=== PATIENT | female | born 1970 | race Caucasian/White ===

== ENCOUNTER 2019-05-12 13:20 | Emergency (ER) | payer OTHER ==
[~2019-05-12] VITALS: Ht 157.5 cm; Wt 56.7 kg
[~2019-05-12 13:20] MED LIST: ALEVE220 MG PO; D-20001 TAB PO; ENBREL25 MG SC; MOTRIN800 MG PO; PRE10 PO; PREDNISONE2.5 MG PO
[2019-05-12 13:48] VITALS: Ht 157.5 cm; Wt 56.7 kg
[2019-05-12 17:15] LABS: BASOPHIL % 0.3 % (0-2); PLATELET COUNT 369 x10^3mcL (130-400)
[2019-05-12 17:17] LABS: RED CELL DISTRIBUTION WIDTH 15.9 % (11.5-14.5)
[2019-05-12 17:31] LABS: CALCIUM 8.3 mg/dL (8.5-10.1); CARBON DIOXIDE 29.8 mmol/L (21-32); CHLORIDE SERUM 107 mmol/L (98-107); CREATININE SERUM 0.4 mg/dL (0.6-1.0); GFR1 > 60 mL/min; GLUCOSE SERUM 84 mg/dL (74-106); POTASSIUM SERUM 3.5 mmol/L (3.5-5.1); SODIUM SERUM 145 mmol/L (136-145)
[2019-05-12 17:46] LABS: ALBUMIN 3.5 g/dL (3.4-5.0); ALKALINE PHOSPHATASE 158 U/L (46-116); ALT/SGPT 34 U/L (14-59); AST/SGOT 12 U/L (15-37); BILIRUBIN TOTAL 0.33 mg/dL (0.20-1.00); TOTAL PROTEIN, SERUM 7.2 g/dL (6.4-8.2)
[2019-05-12 17:48] LABS: T3 TOTAL 0.94 ng/mL
[2019-05-12 18:00] VITALS: BP 131/80
[2019-05-12 18:01] LABS: FREE T4 0.89 ng/dL (0.76-1.46); FREE THYROXINE INDEX 2.3 ug/dL (1.4-4.5)
== END 2019-05-12 19:08 | disposition home or self-care (01) ==
LOC: ED 13:20
PROVIDERS: Emergency Medicine
DX: R60.0 Localized edema (principal); M06.9 Rheumatoid arthritis, unspecified; Z88.8 Allergy status to other drugs, medicaments and biological substances
CPT/HCPCS: 83880; 84439; J2270; J2405; Q0092

== ENCOUNTER 2019-07-20 16:41 | Inpatient (IN) | payer OTHER ==
[~2019-07-20] VITALS: Ht 157.5 cm; Wt 59.0 kg
--- NOTE | 2019-07-20 18:40 | NUR ---
PT TO ED FOR EVAL OF NON-HEALING WOUND TO R LOWER LEG X 3 WEEKS. PT HAS BEEN ON CLINDAMYCIN THERAPY BUT WOUND HAS NOT HEALED. 2CM X 1 CM WOUND TO R LATERAL LOWER LEG X 3 WEEKS. EDEMA TO R LEG X 3 MONTHS. PT AWAKE AND ALERT. BREATHING EVEN UNLABORED. PT HAS DEFORMED HANDS DUE TO RA.
--- NOTE | 2019-07-20 19:27 | NUR ---
PT PROVIDED URINE SAMPLE AT BEDSIDE.
[2019-07-20 19:51] LABS: BASOPHIL % 0.2 % (0-2); PLATELET COUNT 356 x10^3mcL (130-400); RED CELL DISTRIBUTION WIDTH 13.8 % (11.5-14.5)
[2019-07-20 20:01] LABS: CALCIUM 9.1 mg/dL (8.5-10.1); CARBON DIOXIDE 24.4 mmol/L (21-32); CHLORIDE SERUM 101 mmol/L (98-107); CREATININE SERUM 0.3 mg/dL (0.6-1.0); GFR1 > 60 mL/min; GLUCOSE SERUM 113 mg/dL (74-106); POTASSIUM SERUM 3.4 mmol/L (3.5-5.1); SODIUM SERUM 138 mmol/L (136-145)
[2019-07-20 20:06] LABS: ALKALINE PHOSPHATASE 185 U/L (46-116); AST/SGOT 30 U/L (15-37); BILIRUBIN TOTAL 0.43 mg/dL (0.20-1.00); TOTAL PROTEIN, SERUM 7.5 g/dL (6.4-8.2)
[2019-07-20 20:10] LABS: UA SPECIFIC GRAVITY >=1.030 (1.005-1.035); microscopic required? YES; urine erythrocyte 3+ (NEGATIVE)
[2019-07-20 20:31] LABS: ALT/SGPT 56 U/L (14-59)
--- NOTE | 2019-07-20 20:57 | NUR ---
PT REPORT CALLED TO JAZMYNE GOMES TO ASSUME PT CARE.
--- NOTE | 2019-07-20 21:05 | NUR ---
PT TRANSFERRED TO [facility] BY [facility] BY JACKI BARNARD AND KULWANT RN. PT ON FULL CM FOR TRANSPORT. PT AOX4, RESP EVEN AND UNLABORED, NO ACUTE DISTRESS NOTED. PT ACCEPTED BY JAZMYNE GOMES TO ASSUME PT CARE, PT AMBULATED FROM [facility] TO BED WITHOUT INCIDENT WITH WALKER FOR ASSISTANCE.
--- NOTE | 2019-07-20 21:10 | NUR ---
RECEIVED PT FROM ED VIA EMERSON, CAME IN DUE TO RLE WOUND X3 WEEKS, HAD ANTBITIOCS TREATMENT. PT IS AAOX4. DENIES HEADACHE/DIZZINESS. ABLE TO FOLLOW COMMANDS. NO SOB NOTED. DENIES CHEST PAIN/PRESSURE, HR AT 130, SINUS TACHYCARDIA. DENIES ABDOMINAL PAIN/NAUSEA/VOMITING. HAD SOFT BM TODAY. VOIDS. W/ DEFORMITIES ON THE HANDS, HISTORY OF RHEUMATOID ARTHRITIS. USES WALKER ON AMBULATION. STATED THAT SHE HAS 2/10 RLE PAIN. W/ OPEN WOUND AND ERYTHEMA ON RLE AND MILD ERYTHEMA ON LLE. W/ +2 EDEMA ON RLE. IV SITE PATENT AND INTACT, RECEIVED PT FROM ED W/ ROCEPHIN ONGOING. SIDE RAILS UPX2. CALL LIGHT ON REACH. PRIMARY NURSE JAZMYNE AT BEDSIDE FOR CONTINUITY OF CARE
--- NOTE | 2019-07-20 21:15 | NUR ---
PT RECEIVED A/O X4, ABLE TO MAKE NEEDS KNOWN. SPOUSE AT BEDSIDE. TELE #31, SINUS TACH, PT DENIES HAVING ANY CP/PRESSURE. WEAK RIGHT PEDAL PULSE, EDEMA NOTED TO RLE. BREATHING IS EVEN AND UNLABORED ON RA, NO RESP DISTRESS NOTED. ABD SOFT AND NONDISTENDED, DENIES N/V. VOIDS FREELY, BSC. GENREALIZED WEAKNESS, PT AMBULATORY WITH FWW AT BEDSIDE. DEFORMITIES NOTED TO CHRISTOPHER HANDS; PT HAS HX OF RHEUMATOID ARTHRITIS. OPEN WOUNDS NOTED TO RLE, MICHELLE; CLOSED WOUND TO LLE, MICHELLE. PT REPORTS 2/10 MILD PAIN TO RIGHT FOOT, OFFERED PT PAIN MEDS, PT STATES PAIN IS TOLERABLE AT THIS TIME. NO ACUTE DISTRESS NOTED. SL TO RAC, PATENT AND INTACT. ORIENTED PT TO ROOM AND CALL LIGHT. BED IN LOWEST SETTING, SIDE RAILS UP X2, CALL LIGHT WITHIN REACH. WILL CONT TO MONITOR.
[2019-07-20 21:39] VITALS: BP 147/81
[2019-07-20 21:42] VITALS: Ht 157.5 cm; Wt 59.0 kg
[2019-07-20 21:45] LABS: AMPHETAMINE QUAL UR NONE DETECTED (See below)
--- NOTE | 2019-07-20 23:20 | NUR ---
PT C/O /10 RIGHT FOOT PAIN, PRN NORCO GIVEN ORDERED. NO ACUTE DISTRESS NOTED. WILL CONT TO MONITOR.
[2019-07-21 05:24] VITALS: BP 106/71
--- NOTE | 2019-07-21 06:20 | NUR ---
PT SLEPT WELL THROUHGOUT THE EVENING. BREATHING IS EVEN AND UNLABORED, NO RESP DISTRESS NOTED. PT C/O 03/08 RLE PAIN, PRN NORCO GIVEN ORDERED. NO ACUTE CHANGES ENCOUNTERED DURING SHIFT. ALL NEEDS MET AND ANTICIPATED. PT COMPLIANT WITH NURSING CARE. IVF INFUSING WELL, SITE WNL. CALL LIGHT WITHIN REACH. WILL ENDORSE CARE TO AM NURSE.
[2019-07-21 06:29] LABS: BASOPHIL % 0.3 % (0-2); PLATELET COUNT 306 x10^3mcL (130-400); RED CELL DISTRIBUTION WIDTH 14.4 % (11.5-14.5)
--- NOTE | 2019-07-21 06:30 | NUR ---
PODIATRY TEAM AT BEDSIDE PERFORMING WOUND CARE KEN.
[2019-07-21 06:47] LABS: CALCIUM 8.5 mg/dL (8.5-10.1); CARBON DIOXIDE 25.1 mmol/L (21-32); CHLORIDE SERUM 102 mmol/L (98-107); CREATININE SERUM 0.3 mg/dL (0.6-1.0); GFR1 > 60 mL/min; GLUCOSE SERUM 93 mg/dL (74-106); MAGNESIUM 1.5 mg/dL (1.8-2.4); PHOSPHOROUS 4.4 mg/dL (2.5-4.9); POTASSIUM SERUM 3.5 mmol/L (3.5-5.1); SODIUM SERUM 136 mmol/L (136-145)
--- NOTE | 2019-07-21 07:20 | NUR ---
RECEIVED PT FROM INTERNET MEDIA PLANNER. PT AWAKE, ALERT. A/OX4. PT ON ROOM AIR WITH NO RESP DISTRESS NOTED. IV ACCESS RAC, CDI INFUSING NS AT 70ML/HR. PT ON TELE 31, DENIES CHEST PAIN. PT NOTED TO HAVE WOUND TO RLE WITH BANDAGE CDI. SWELLING AND EDEMA NOTED TO RLS. PERIPHERAL PULSES BUE PALPABLE, ACTIVE BS NOTED. PT USES BSC WITH NO ISSUES NOTED. PT NOTED TO HAVE DEFORMITIES TO BILATERAL HANDS. PT REPORTS PAIN IS TOLERABLE AT THIS TIME. WILL MONITOR. SAFETY MEASURES IN PLACE, BED LOW AND LOCKED. CALL LIGHT WITHIN REACH.
--- NOTE | 2019-07-21 07:33 | NUR ---
PT IN NO ACUTE DISTRESS. CONTINUITY OF CARE ENDORSED TO BRITTANY GOMES. ALL QUESTIONS AND CONCERNS ADDRESSED.
[2019-07-21 10:32] VITALS: BP 108/60
--- NOTE | 2019-07-21 10:37 | NUR ---
PT COMPLAINING OF PAIN TO RIGHT LOWER EXTREMITY 03/08. ASKING FOR PAIN MEDICINE. NORCO ADMINISTERED ORDERED PRN. WILL MONITOR.
--- NOTE | 2019-07-21 11:30 | NUR ---
PT REPORTS PAIN IS 2/10 AT THIS TIME. MED EFFECTIVE.
--- NOTE | 2019-07-21 12:48 | NUR ---
PT IV LEAKING TO RAC. NEW IV PLACED, 22G TO RFA. PT TOLERATED WELL. OLD IV REMOVED WITH CATHETER INTACT. SAFETY MAINTAINED.
--- NOTE | 2019-07-21 12:58 | NUR ---
PT MAG NOTED TO BE 1.5. NEW ORDER FOR MAG OXIDE. MED ADMINISTERED ORDERED (SEE EMAR). PT TOLERATED WELL.
[2019-07-21 13:15] VITALS: BP 112/57
--- NOTE | 2019-07-21 15:58 | NUR ---
PT COMPLAINING OF PAIN TO RIGHT FOOT 02/06, ASKING FOR PAIN MED. NORCO ADMINISTERED ORDERED PRN. WILL MONITOR. CONSENT FOR EXCISIONAL DEBRIDEMENT OBTAINED AT THIS TIME.
[2019-07-21 16:59] VITALS: BP 127/72
--- NOTE | 2019-07-21 18:37 | NUR ---
PT REFUSES DILAUDID AND LIDOCAINE AT THIS TIME. PT STATES SHE DOES NOT NEED IT FOR THE PROCEDURE. PT TOLERATED PROCEDURE WELL. ALL NEEDS TENDED TO THROUGHOUT SHIFT. WILL CONTINUE TO MONITOR AND ENDORSE CARE TO OPERATIONS RESEARCH ANALYST.
[2019-07-21 20:38] VITALS: BP 136/95
--- NOTE | 2019-07-21 20:52 | NUR ---
Awake and verbally responsive. No respiratory distress noted on room air. Denies n/v. Medicated as ordered for c/o right leg wound pain. [place] 1 tab given. RLE wound with dressing intact. Erythema and edema noted. Supported with pillow. Will cont.to monitor. Call light within reach.
--- NOTE | 2019-07-22 03:54 | NUR ---
Afebrile. No significant changein condition noted. Pain managed with norco. Denies n/v. Right leg wound with dressing intact. Cont.on IV vancomycin, zosyn. In no apparent distress.
[2019-07-22 05:26] VITALS: BP 119/59
[2019-07-22 06:46] LABS: CALCIUM 8.6 mg/dL (8.5-10.1); CARBON DIOXIDE 27.2 mmol/L (21-32); CHLORIDE SERUM 101 mmol/L (98-107); CREATININE SERUM 0.8 mg/dL (0.6-1.0); GFR1 > 60 mL/min; GLUCOSE SERUM 98 mg/dL (74-106); MAGNESIUM 1.8 mg/dL (1.8-2.4); PHOSPHOROUS 4.2 mg/dL (2.5-4.9); POTASSIUM SERUM 3.4 mmol/L (3.5-5.1); SODIUM SERUM 136 mmol/L (136-145)
[2019-07-22 06:52] LABS: BASOPHIL % 0.2 % (0-2); PLATELET COUNT 274 x10^3mcL (130-400); RED CELL DISTRIBUTION WIDTH 14.1 % (11.5-14.5)
--- NOTE | 2019-07-22 07:35 | NUR ---
RECEIVED PATIENT. ALERT AND ORIENTED X4. NO ACUTE RESPIRATORY DISTRESS NOTED. NO CHEST PAIN OR PRESSURE. NO C/O PAIN AT THIS TIME. NS RUNNING AT 70 ML/HR, IV PATENT AND INTACT, NO INFILTRATION NOTED. HANDS ARE CONTRACTED DUE TO HX OF RHEUMATOID ARTHRITIS, PATIENT EDUCATED TO CALL FOR HELP IF NEEDED. BSC IN PLACE. RLE EDEMA NOTED WITH REDNESS AND WARM TO TOUCH. PATIENT ADMITTED FOR RIGHT LEG CELLULITIS. PATIENT WILL BE GETTING ABX ORDERED. SAFETY PRECAUTIONS IN PLACE. CALL LIGHT WITHIN REACH. WILL CONTINUE TO MONITOR.
--- NOTE | 2019-07-22 07:58 | NUR ---
PATIENT COMPLAINED OF NAUSEA. ZOFRAN 4MG IVP GIVEN BEFORE BREAKFAST. PATIENT TOLERATED WELL, WILL CONTINUE TO MONITOR.
--- NOTE | 2019-07-22 08:44 | NUR ---
PATIENT COMPLAINING OF PAIN TO RIGHT LOWER FOOT. MORPHINE 2MG IVP GIVEN. PATIENT TOLERATED WELL. WILL CONTINUE TO MONITOR.
--- NOTE | 2019-07-22 09:40 | NUR ---
PATIENT IS STABLE, NO ACUTE RESPIRATORY DISTRESS NOTED. PATIENT REMAINS SLIGHTLY TACHYCARDIC. PATIENT STATED PAIN WENT DOWN TO 2 OUT OF 10 AFTER PAIN MEDICATION. PATIENT TAUGHT OF SIDE EFFECTS OF MORPHINE. PATIENT VERBALIZED UNDERSTANDING. IV INTACT AND PATENT, NO INFILTRATION NOTED. SAFETY PRECAUTIONS IN PLACE. WILL CONTINUE TO MONITOR.
[2019-07-22 09:43] VITALS: BP 126/59
--- NOTE | 2019-07-22 12:00 | NUR ---
SPOKE TO PHARMACIST REGARDING VANCO TROUGH RESULT 32.7. PER PHARMACIST, HOLD ADMINISTRATION OF VANCOMYCIN AT 1300 UNTIL REPEAT LAB RESULTS HAVE ARRIVED. WILL WAIT FOR PHARMACIST CALL AND RECOMMENDATION ABOUT ADMINISTRATION OF MEDICATION. WILL CONTINUE TO MONITOR PATIENT.
--- NOTE | 2019-07-22 12:35 | NUR ---
PATIENT IN BED, EATING LUNCH. PATIENT IS STABLE, NO ACUTE RESPIRATORY DISTRESS NOTED. NO C/O PAIN AT THIS TIME. IV INTACT AND PATENT, NO INFILTRATION NOTED. RLE REMAINS SWOLLEN WITH ERYTHEMA AND WARMTH. EDUCATED TO ELEVATE FOOT TO AID WITH SWELLING. SAFETY PRECAUTIONS IN PLACE. WILL CONTINUE TO MONITOR.
[2019-07-22 13:49] VITALS: BP 145/74
--- NOTE | 2019-07-22 14:50 | NUR ---
PATIENT IN BED, AWAKE. STABLE, NO DISTRESS NOTED. PATIENT STATES SHE FEELS BETTER, PAIN WENT DOWN AND NOT MUCH NAUSEA AT THIS TIME. RIGHT FOOT IS PINK AND STILL SWOLLEN. INSTRUCTED TO ELEVATE FOOT OFTEN POSSIBLE. IV INTACT AND PATENT. FAMILY AT BEDSIDE. WILL CONTINUE TO MONITOR.
[2019-07-22 17:01] VITALS: BP 118/58
--- NOTE | 2019-07-22 17:30 | NUR ---
PATIENT IS STABLE. NO ACUTE DISTRESS NOTED. NO C/O PAIN. RLE IS SWOLLEN WITH ERYTHEMA, INSTRUCTED PATIENT TO ELEVATE FOOT, PATIENT COMPLIANT. FAMIYL AT BEDSIDE. IV PATENT AND INTACT. SAFETY PRECAUTIONS IN PLACE. CALL LIGHT WITHIN REACH. WILL CONTINUE TO MONITOR.
--- NOTE | 2019-07-22 19:15 | NUR ---
PATIENT IS STABLE. NO ACUTE RESPIRATORY DISTRESS AT THIS TIME. NO C/O PAIN. NO N/V NOTED. NS RUNNING TO RFA, IV INTACT AND PATENT, NO INFILTRATION NOTED. SAFETY PRECAUTIONS IN PLACE. CALL LIGHT WITHIN REACH. WILL ENDORSE TO TRANSPLANT NURSE PRACTITIONER NURSE.
--- NOTE | 2019-07-22 19:15 | NUR ---
RECIEVED PT RESTING IN BED WITH NO ACUTE DISTRESS NOTED AT THIS TIME, ASSESMENT PERFORMED AT THIS TIME, PT IS A/OX4 NO COMPLAINTS OF MIGUEL OR DIZZINESS, PT DENIES PAIN OR SOB, WOUND TO RLE VAZQUEZ, COVERED WITH DRESSING CDI, RLE EDEMA +2, RLE ELEVATED ON PILLOW, IV TO RFA INFUSING NS AT 70ML/HOUR, TELE , ALL PT NEED ATTENDED TO, SAFETY PRECAUTIONS IN PLACE, WILL CONTINUE TO MONITOR
[2019-07-22 20:36] VITALS: BP 126/70
--- NOTE | 2019-07-22 22:55 | NUR ---
PT UP AND TO THE BEDSIDE CAMODE AND HAD A VOID, RETURNED TO BED, SAFETY PRECAUTIONS IN PLACE, ALL NEEDS ATTENDED TO, WILL CONTINUE TO MONITOR
--- NOTE | 2019-07-23 00:25 | NUR ---
PT RESTING IN BED WITH NO ACUTE DISTRESS AT THIS TIME, PT WATCHING TV, PT DENIES PAIN OR SOB AT THIS TIME, ALL NEEDS ATTENDED TO SAFETY PRECAUTIONS IN PLACE, WILL CONTINUE TO MONITOR
[2019-07-23 05:47] VITALS: BP 125/72
--- NOTE | 2019-07-23 06:30 | NUR ---
PT RESTED COMFORTABLY THROUGH NIGHT WITH MINOR OCCURENCE OF PAIN, PT HAD NO EPISODES OF SOB THROUGH NIGHT, PT STABLE, WAS ABLE TO AMBULATE TO BEDSIDE CAMODE AND VOID, ALL NEEDS ATTENDED TO WILL ENDORSE CARE TO ONCOMING SHIFT
[2019-07-23 07:01] LABS: BASOPHIL % 0.1 % (0-2); PLATELET COUNT 290 x10^3mcL (130-400)
--- NOTE | 2019-07-23 07:15 | NUR ---
RECEIVED PATIENT. AWAKE ALERT AND ORIENTED X4. NO ACUTE RESPIRATORY DISTRESS NOTED. NO C/O PAIN AT THIS TIME. NO N/V NOTED. IV INTACT AND PATENT. NO INFILTRATION NOTED. SAFETY PRECAUTION IN PLACE. WILL CONTINUE TO MONITOR.
[2019-07-23 07:36] LABS: CALCIUM 8.7 mg/dL (8.5-10.1); CARBON DIOXIDE 23.7 mmol/L (21-32); CHLORIDE SERUM 107 mmol/L (98-107); CREATININE SERUM 0.8 mg/dL (0.6-1.0); GFR1 > 60 mL/min; GLUCOSE SERUM 96 mg/dL (74-106); POTASSIUM SERUM 3.3 mmol/L (3.5-5.1); SODIUM SERUM 142 mmol/L (136-145)
--- NOTE | 2019-07-23 08:14 | NUR ---
PATIENT COMPLAINS OF PAIN TO RIGHT LEG DURING DRESSING CHANGE BY AIRCRAFT MAINTENANCE INSTRUCTOR. NORCO 7.5/325 TABLET PO GIVEN. PATIENT TOLERATED WELL. WILL CONTINUE TO MONITOR.
--- NOTE | 2019-07-23 08:15 | NUR ---
PODIATRY NOTED AT BEDSIDE, WOUND CARE PERFORMED BY SAFE DEPOSIT BOX RENTAL CLERK WITH STUDENT. PATIENT TOLERATED WELL. WILL CONTINUE TO MONITOR.
[2019-07-23 08:22] VITALS: BP 111/72
--- NOTE | 2019-07-23 09:30 | NUR ---
PATIENT STABLE. REMAINS ON ROOM AIR. NO ACUTE RESPIRATORY DISTRESS NOTED. NO C/O PAIN AT THIS TIME. NO N/V NOTED. IV INTACT AND PATENT. NO INFILTRATION NOTED. SAFETY PRECAUTION IN PLACE. WILL CONTINUE TO MONITOR.
[2019-07-23 13:11] VITALS: BP 117/64
--- NOTE | 2019-07-23 15:46 | NUR ---
PATIENT COMPLAINED OF 7/10 GENERALIZED PAIN. NORCO 7.5 PO GIVEN. TOLERATED WELL. WILL CONTINUE TO MONITOR.
[2019-07-23 17:05] VITALS: BP 142/83
--- NOTE | 2019-07-23 18:40 | NUR ---
PATIENT STABLE. REMAINS ON ROOM AIR. NO ACUTE RESPIRATORY DISTRESS NOTED. NO C/O PAIN AT THIS TIME. NO N/V NOTED. IV INTACT AND PATENT. NO INFILTRATION NOTED. SAFETY PRECAUTION IN PLACE. FAMILY AT BEDSIDE. WILL ENDORSE TO SHEETER OPERATOR NURSE.
--- NOTE | 2019-07-23 19:15 | NUR ---
RECIEVED PT RESTING IN BED WITH NO ACUTE DISTRESS NOTED AT THIS TIME, WITH 2 FAMILY MEMEBERS AT BEDSIDE, ASSESMENT PERFORMED AT THIS TIME, PT IS A/OX4 NO COMPLAINTS OF MIGUEL OR DIZZINESS, PT DENIES PAIN OR SOB AT THIS TIME, WOUND TO RIGHT VAZQUEZ, DRESSING IN PLACE, CDI, ALL PT NEEDS ATTENDED TO, SAFETY PRECAUTIONS IN PLACE, WILL CONTINUE TO MONITOR
--- NOTE | 2019-07-23 20:39 | NUR ---
PT REPORTS MINOT ITCHING TO ARM, NO REDNESS OR SWELLING TO THE AREA, ADMINISTERED BENADRYL PER PRN ORDER, WILL CONTINUE TO MONITOR
[2019-07-23 20:56] VITALS: BP 121/55
--- NOTE | 2019-07-23 23:45 | NUR ---
PT RESTING IN BED WITH NO ACUTE DISTRESS NOTED AT THIS TIME, PT WATCHING TV, DENIES PAIN OR SOB AT THIS TIME, ALL PT NEED ATTENDED TO, SAFETY PRECAUTIONS IN PLACE, WILL CONTINUE TO MONITOR
--- NOTE | 2019-07-24 00:25 | NUR ---
PT REPORTS PAIN TO THE RLE, SHOOTING, AND [place]ARP, 02/06, ADMINISTERED NORCO PER PRN ORDER, SAFETY PRECAUTIONS IN PLACE, WILL CONTINUE TO MONITOR
[2019-07-24 04:49] VITALS: BP 105/64
--- NOTE | 2019-07-24 05:59 | NUR ---
PT RESTED ON AND OFF THROUGH THE NIGHT WITH NO ACUTE DISTRESS NOTED, PT HAD ONE EPISODE OF PAIN THAT WAS TREATED WITH PRN NORCO TO EFFECT, PT GOT UP AND AMBULATED TO THE BEDSIDE CAMODE, ALL PT NEEDS ATTENDED TO, SAFETY PRECAUTIONS IN PLACE WILL CONTINUE TO MONITOR AND ENDORSE CARE TO ONCOMING SHIFT.
[2019-07-24 06:30] LABS: BASOPHIL % 0.4 % (0-2); PLATELET COUNT 337 x10^3mcL (130-400)
[2019-07-24 06:55] LABS: CALCIUM 8.6 mg/dL (8.5-10.1); CARBON DIOXIDE 25.6 mmol/L (21-32); CHLORIDE SERUM 105 mmol/L (98-107); CREATININE SERUM 0.8 mg/dL (0.6-1.0); GFR1 > 60 mL/min; GLUCOSE SERUM 82 mg/dL (74-106); MAGNESIUM 1.7 mg/dL (1.8-2.4); POTASSIUM SERUM 3.4 mmol/L (3.5-5.1); SODIUM SERUM 139 mmol/L (136-145)
--- NOTE | 2019-07-24 07:37 | NUR ---
RECEIVED HAND OFF FROM NIGHT NURSEZEB. PATIENT SITTING UP ON SIDE OF BED AT THIS TIME. A/O X4 ON ROOM AIR. TELE 31 PRESENT ON CHEST, SHOWING SINUS TACH. COMPLAINING OF PAIN TO RLE, WILL MEDICATED PER MAR. PATIENT HAS 22G IV TO THE RIGHT FOREARM WITH NS INFUSING WELL AT 50ML'H. DRESSING TO RIGHT VAZQUEZ INTACT, NON WEIGHTBEARING, BED SIDE COMMODE WITHIN TRANSFERING DISTANCE AND FWW AT BEDSIDE. PATIENT ABLE TO TRANSFER TO COMMODE. CALL LIGHT WITHIN REACH, WILL CONTINUE TO MONITOR
[2019-07-24 08:00] VITALS: BP 128/67
[2019-07-24 12:05] VITALS: BP 132/83
--- NOTE | 2019-07-24 12:20 | NUR ---
PODIATRY AT BEDSIDE. CHANGED DRESSING ON RIGHT LEG.
--- NOTE | 2019-07-24 13:48 | NUR ---
PATIENT COMPLAINGING OF 6/10 PAIN TO RIGHT LEG. ADMINISTERED NORCO PRN FOR PAIN. WILL REASSESS
--- NOTE | 2019-07-24 15:50 | NUR ---
PATIENT STATING THAT SHE IS HAVING ITCHING TO HER RIGHT LEG WHILE VANCO IS INFUSING. OFFERED BENADRYL BUT PATIENT STATED THAT IT IS TOLERABLE. WILL ENDORSE TO GIVE BENADRYL WITH VANCO
[2019-07-24 16:16] VITALS: BP 129/84
--- NOTE | 2019-07-24 18:58 | NUR ---
PATIENT NEEDS ATTENDED TO DURING SHIFT. DAUGHTER AT BEDSIDE. CALL LIGHT WITHIN REACH, WILL ENDORSE TO CLOSED CIRCUIT SCREEN WATCHER
--- NOTE | 2019-07-24 19:25 | NUR ---
RECEIVED PT FROM AM NURSE. PT SITTING IN BED. PT AAOX4, ABLE TO FOLLOW COMMANDS AND MAKE NEEDS KNOWN. ON TELE#[address] DENIES CP/PRESSURE AT THIS TIME . PALPABLE PULSES TO ALL EXTREMETIES. EDEMA TO BLE NOTED. LNG SOUNDS CTA. BREATHING EVEN AND UNLABORED ON RA. NO ACUTE DISTRESS NOTED. ABD SOFT AND NONDISTENDED. ACTIVE BS X4 QUAD, DENIES N/V/D. VOIDS FREELY, BRP. GENERALIZED WEAKNESS, NWB TO RLE. AMBULATES WITH WALKER. WOUND TO RLE COVERED WITH DRESSING. DRESSING. CDI. REDNESS TO BLE. IV TO RFA INFUSING WELL. SITE FREE FROM REDNESS AND SWELLING. BED AT LOWEST SETTING. SIDE RAILS X2 UP.CALL LIGHT WITHING REACH.WILL CONT TO MONITOR.
[2019-07-24 19:50] VITALS: BP 133/81
--- NOTE | 2019-07-24 20:06 | NUR ---
PT C/O 03/08 ACHING PAIN TO RLE, MEDICATED WITH PRN NORCO PER OCT. NO ACUTE DISTRESS NOTED. ASSISTED PT ELEVATING LEGS ON PILLOWS. WILL CONT TO MONITOR.
--- NOTE | 2019-07-24 22:40 | NUR ---
PT C/O ITCHINESS TO RLE, MEDICATED WITH PRN BENADRYL PER MAR. NO ACUTE DISTRESS NOTED. WILL CONT TO MONITOR.
--- NOTE | 2019-07-25 00:19 | NUR ---
PT LAYING DOWN IN BED, BREATHING EVEN AND UNLABORED ON RA. NO ACUTE DISTRESS NOTED. BED AT LOWEST SETTING. SIDE RAILS X2 UP. CALL LIGHT WITHING REACH. WILL CONT TO MONITOR.
--- NOTE | 2019-07-25 01:59 | NUR ---
K 3.4, MAG 1.[address] HIGUERA. NO NEW ORDERS RECEIVED.
--- NOTE | 2019-07-25 05:21 | NUR ---
PT SLEPT AT INTERVALS THROUGHOUT THE NIGHT, BREATHING EVEN AND UNLABORED ON RA. NO SIGNIFICANT CHANGE DURING SHIFT. RLE MAINTAINED ELEVATED ON PILLOW DURING SHIFT. ALL NEEDS ASSESSED AND ATTENDED TO. BED AT LOWEST SETTING. SIDE RAILS X2 UP. CALL LIGHT WITHING REACH. WILL ENDORSE CARE TO AM NURSE.
[2019-07-25 05:38] VITALS: BP 105/58
[2019-07-25 06:38] LABS: BASOPHIL % 0.4 % (0-2); PLATELET COUNT 360 x10^3mcL (130-400); RED CELL DISTRIBUTION WIDTH 14.1 % (11.5-14.5)
[2019-07-25 07:12] VITALS: BP 125/56
--- NOTE | 2019-07-25 07:20 | NUR ---
RECEIVED HAND OFF REPORT FROM NIGHT NURSE, PATIENT AWAKE AND ALERT IN BED, COMPLAINING OF MILD PAIN TO RIGHT LEG, REQUESTING TYLENOL. PODIATRY SAW PATIENT THIS AM AND CHANGED DRESSING. NEW ORDERS ENTERED FOR [facility] TO [facility] [place] [facility]. UPDATED PATIENT ON PLAN OF CARE. NO OTHER COMPLAINTS AT THIS TIME. CALL LIGHT WITHIN REACH, WILL CONTINUE TO MONITOR
[2019-07-25 07:29] LABS: CALCIUM 8.1 mg/dL (8.5-10.1); CARBON DIOXIDE 25.8 mmol/L (21-32); CHLORIDE SERUM 103 mmol/L (98-107); CREATININE SERUM 0.8 mg/dL (0.6-1.0); GFR1 > 60 mL/min; GLUCOSE SERUM 86 mg/dL (74-106); SODIUM SERUM 139 mmol/L (136-145)
[2019-07-25 07:33] LABS: POTASSIUM SERUM 2.8 mmol/L (3.5-5.1)
--- NOTE | 2019-07-25 08:04 | NUR ---
CRITICAL RESULT OF POTASSIUM 2.9, REPORTED TO [employer]ONATAN ARCHIVIST MILITARY HISTORY, AWAITING NEW ORDERS. MEDICATED PATIENT WITH TYLENOL FOR MILD LEG PAIN. WILL REASSESS
[2019-07-25] MEDS ORDERED: CLEOCIN HCL150 MG PO (09:55)
[2019-07-25 11:48] VITALS: BP 125/56
[2019-07-25 12:49] VITALS: BP 132/79
--- NOTE | 2019-07-25 14:54 | NUR ---
PATIENT DISHCARGE ORDER IN AND PATIENT READY FOR DISCHARGE. REVIEWED CHART AND TREATMENTS WITH PATIENT. MADE AWARE OF FOLLOW UP APPOINTMENT WITH PCP. GAVE EDUCATION ABOUT NEW PRESCRIPTIONS AND HOME HEALTH SET UP. PATIENT AND HAD NO FURTHER QUESTIONS. MUNIRA CEDENO TO TAKE PATIENT OFF UNIT. TELE 31 REMOVED FROM JEANNA AND TAKENT TO NATALIYA IN HOTEL OR MOTEL MANAGER ROOM. IV REMOVED FROM RIGHT FOREARM. CATH INTACT, NO PAIN SWELLING OR BLEEDING
== END 2019-07-25 15:17 | disposition home health service (06) | DRG 872 ==
LOC: ED 16:41 → DU 20:07
PROVIDERS: Emergency Medicine; ADMIT General Practice
DX: A41.9 Sepsis, unspecified organism (principal); L03.115 Cellulitis of right lower limb; L97.818 Non-pressure chronic ulcer of other part of right lower leg with other specified severity; E87.6 Hypokalemia; L85.3 Xerosis cutis; M06.9 Rheumatoid arthritis, unspecified; Z96.641 Presence of right artificial hip joint; Z68.23 Body mass index [BMI] 23.0-23.9, adult; Z79.52 Long term (current) use of systemic steroids; Z79.1 Long term (current) use of non-steroidal anti-inflammatories (NSAID)
CPT/HCPCS: 90715; G0378; J0295; J2001; J2270; J2405; J2543; J3370; J3480; J7030; J7050; Q0092; Q0163